=== PATIENT | female | born 1965 | race Two or more races ===

== ENCOUNTER 2017-12-05 08:54 | Outpatient (CLI) | payer OTHER | END 2017-12-05 09:07 | disposition home or self-care (01) | LOC: NUCLEAR 08:54 | DX: C50.812 Malignant neoplasm of overlapping sites of left female breast (principal); Z17.0 Estrogen receptor positive status [ER+] | CPT/HCPCS: 78816; A9552 ==

== ENCOUNTER 2019-06-10 05:40 | Day surgery (SDC) | payer OTHER ==
[~2019-06-10 05:40] MED LIST: FEMARA2.5 MG PO; FOSAMAX70 MG PO; SYNTHROID112 MCG PO; VITAMIN D35000 UNI1 PO
== END 2019-06-10 13:50 | disposition home or self-care (01) ==
LOC: CIR.AMB 05:40
DX: C50.812 Malignant neoplasm of overlapping sites of left female breast (principal)

== ENCOUNTER 2020-09-08 08:22 | Outpatient (CLI) | payer OTHER | END 2020-09-08 16:15 | disposition home or self-care (01) | LOC: OFIC 805 08:22 | PROVIDERS: ATTEND Otolaryngology Otology & Neurotology | DX: H81.11 Benign paroxysmal vertigo, right ear (principal) ==

== ENCOUNTER 2020-09-13 08:29 | Outpatient (CLI) | payer OTHER | END 2020-09-13 09:04 | disposition home or self-care (01) | LOC: OFIC 805 08:29 | PROVIDERS: ATTEND Otolaryngology Otology & Neurotology | DX: H93.8X2 Other specified disorders of left ear (principal); H61.22 Impacted cerumen, left ear; H81.11 Benign paroxysmal vertigo, right ear ==

== ENCOUNTER 2020-10-25 09:51 | Outpatient (CLI) | payer OTHER | END 2020-10-25 12:53 | disposition home or self-care (01) | LOC: OFIC 805 09:51 | PROVIDERS: ATTEND Otolaryngology Otology & Neurotology | DX: H93.8X2 Other specified disorders of left ear (principal); H61.22 Impacted cerumen, left ear; H81.11 Benign paroxysmal vertigo, right ear ==